=== PATIENT | male | born 1980 | race Hispanic/Latino ===

== ENCOUNTER 2024-01-30 17:45 | Emergency (ER) | payer SELFPAY ==
[~2024-01-30] VITALS: Ht 172.7 cm; Wt 81.6 kg
[2024-01-30] MEDS: ketOROlac 15MG/ML VIAL (15MG/ML) IM STA (18:27)
[2024-01-30] MEDS: TETRACAINE HCL 0.5% 4 ML OPHTH SOLN OP STA (18:27)
[2024-01-30] MEDS: cloNIDine HCL 0.1 MG TABLET PO STA (18:28)
[2024-01-30] MEDS: FLUORESCEIN SODIUM 1 STRIP STRIP OP STA (18:30)
[2024-01-30] MEDS: CIPROFLOXACIN HCL 0.2%/HYDROCORT 1% 10 ML OTIC SUSP OTIC STA (19:26)
[2024-01-30 19:29] VITALS: TEMP 98.5
[2024-01-30] MEDS: hydrALAZine 20MG/ML VIAL IM STA (20:42)
[2024-01-30 20:45] VITALS: BP 197/119; PULSE 77; RESP 19; O2SAT 96
[2024-01-30] MEDS: hydrALAZine 20MG/ML VIAL IV PRN (21:11)
== END 2024-01-30 21:14 | disposition left against medical advice (07) ==
LOC: EDH 17:45
DX: S05.51XA Penetrating wound with foreign body of right eyeball, initial encounter (principal); I10 Essential (primary) hypertension; X58.XXXA Exposure to other specified factors, initial encounter; Y93.89 Activity, other specified; Y92.89 Other specified places as the place of occurrence of the external cause; Y99.8 Other external cause status
CPT/HCPCS: 99284; 96374; 65222; 96372; J0360; J1885